=== PATIENT | female | born 1965 | race African-American/Black ===

== ENCOUNTER 2022-08-13 13:54 | Observation (INO) | payer SELFPAY ==
[2022-08-13] VITALS (14 sets, daily range): BP systolic 116–177; BP diastolic 69–98
[~2022-08-13] VITALS: Ht 160 cm; Wt 73.0 kg
--- NOTE | 2022-08-13 13:54 | NUR ---
PT ARRIVES VIA EMS, TRANSFERRED TO ROOM 9.
[2022-08-13 14:32] LABS: BASO% 0.7 % (0-3); EOS% 4.8 % (0-8); HEMATOCRIT 40.3 % (37.0-47.0); HEMOGLOBIN 13.2 g/dl (12.0-16.0); IMMATURE GRANULOCYTES 0.2 % (0.0-5.0); LYMPH% 33.6 % (15-41); MEAN CELL VOLUME 98.1 fL CALC (80.0-100.0); MEAN CORPUSCULAR HGB 32.1 pG CALC (26.0-32.0); MEAN CORPUSCULAR HGB CONC 32.8 g/dL CAL (32.0-36.0); MONO% 10.7 % (2-13); NEUT# 2.1 thou/uL (2.00-7.15); RED BLOOD COUNT 4.11 mill/uL (4.20-5.60); RED CELL DISTRI WIDTH 12.8 % (11.5-15.5)
--- NOTE | 2022-08-13 14:37 | NUR ---
PT RESTING ON STRETCHER, SON AT BEDSIDE.
[2022-08-13 14:39] LABS: ALBUMIN 4.5 g/dL (3.2-5.0); ALKALINE PHOSPHATASE 70 u/l (38-126); ANION GAP 11 (6-22 (CALC)); BILIRUBIN, TOTAL 0.9 mg/dL (0.02-1.3); BUN 16 mg/dL (7-17); BUN/CREATININE RATIO 20 (12-20 (CALC)); CARBON DIOXIDE 26 mmol/l (22-30); CHLORIDE 107 mmol/l (95-108); CREATININE 0.8 mg/dL (0.5-1.0); GFR FOR AFR.AMER. > 60 ML/MIN (>=60 (CALC)); GFR OTHER RACES > 60 ML/MIN (>=60 (CALC)); POTASSIUM 4.2 mmol/l (3.5-5.1); SGOT/AST 29 u/l (14-36); SODIUM 139 mmol/l (137-146); TOTAL PROTEIN 7.3 g/dL (6.3-8.2)
--- NOTE | 2022-08-13 15:43 | NUR ---
PT DOES NOT KNOW HER HOME MEDICATIONS. STATES SHE TOOK ALL HER MEDICATIONS THIS AM. CALLED [facility] TO VERIFY HOME MED REC. MED REC COMPLETED.
[2022-08-13] MEDS ORDERED: SYMBICORT 80-4.5MCG IN (15:47)
[2022-08-13] MEDS ORDERED: PLENDIL10 MG PO (15:48)
[2022-08-13] MEDS ORDERED: COZAAR100 MG PO (15:49)
--- NOTE | 2022-08-13 16:05 | NUR ---
REPORT ENDORSED TO Tiana MCDONALD RN FOR TRANSFER TO ROOM 274.
--- NOTE | 2022-08-13 16:22 | NUR ---
PT TRANSFERRED UP TO ROOM 274 VIA WHEELCHAIR, ON TELEMETRY, ACCOMPANIED BY Daria SHEPPARD ED TECHRolando
--- NOTE | 2022-08-13 16:30 | NUR ---
ER patient is received. report by [facility] ER Nurse. Alert and oriented patient X3. She does not refer to chest pain at the time of writing this note. He is oriented on admission, nursing plan and the medications he takes at home are verified. Safety and fall precautions in [lace. Call light within in reach.
--- NOTE | 2022-08-13 20:00 | NUR ---
RECEIVED REPORT FROM JEANNE RADER. PT RESTING IN BED, SITTING ON THE RIGHT SIDE OF IT, AWAKE, WATCHING TV. ASSESSMENT COMPLETED. PT IS A&OX3. PT IS ABLE TO COMMUNICATE NEEDS BUT ONLY IN [place]EL[place]IC AND CREOLE. PT DENIES ANY PAIN OR DISCOMFORT AT THIS TIME. ON ROOM AIR, BREATHING EVEN AND UNLABORED. IV IS PATENT AND FLUSHES WELL. ON TELEMETRY, MONITORED BY ED. EDUCATED PT ON HOW TO USE THE BED AND HELPED HER FIND A ICELANDIC CHANNEL ON TV. CALL LIGHT AND BEDSIDE TABLE WITHIN REACH, SAFETY PRECAUTIONS IN PLACE.
--- NOTE | 2022-08-14 | NUR ---
PT RESTING IN BED IN LOW SEMI-MCC[place]LLAND'S POSIITON, EYES CLOSED. BREATHING EVEN AND UNLABORED. TELEMETRY IN PLACE. NO SIGNS OF PAIN OR DISTRESS NOTED AT THIS TIME. CALL LIGHT AND BEDSIDE TABLE WITHIN REACH. SAFETY PRECAUTIONS IN PLACE.
--- NOTE | 2022-08-14 04:00 | NUR ---
PT RESTING IN BED IN LOW SEMI-MCCLELLAND'S POSIITON, EYES CLOSED. ON ROOM AIR, BREATHING EVEN AND UNLABORED. IV IS PATENT AND FLUSHES WELL. TELEMETRY IN PLACE, MONITORED BY ED. NO SIGNS OF PAIN OR DISTRESS NOTED AT THIS TIME. CALL LIGHT AND BEDSIDE TABLE WITHIN REACH, SAFETY PRECAUTIONS IN PLACE.
[2022-08-14 04:14] VITALS: BP 133/85
[2022-08-14 06:17] LABS: CHOLESTEROL HDL RATIO 2.9 (<4.4 (CALC)); MAGNESIUM 2.1 mg/dL (1.6-2.3)
[2022-08-14 06:45] VITALS: BP 144/86
--- NOTE | 2022-08-14 09:58 | NUR ---
PT RECEIVED IN BED, A/OX3 CALM AND COOPERATIVE. VITALS NOTED. DENIES PAIN SOB OR DISCOMFORT.SATING AT 98% ON RA. LEFT AC 18G PATENT, SECURED AND SALINE LOCKED. PERIPHERAL PULSES PALPABLE. CALL LIGHT WITHIN REACH, BED SECURED AND LOCKED. WILL CONTINUE TO MONITOR.
[2022-08-14 10:43] LABS: URINE BILIRUBIN - DIPSTICK NEGATIVE (NEGATIVE); URINE BLOOD DIPSTICK NEGATIVE (NEGATIVE); URINE COLOR YELLOW; URINE GLUCOSE - DIPSTICK NEGATIVE (NEGATIVE); URINE KETONE NEGATIVE (NEGATIVE); URINE LEUK ESTERASE TRACE (NEGATIVE); URINE PH 6.5 (4.5-8.0); URINE PROTEIN - DIPSTICK NEGATIVE (NEG-TRACE); URINE SPECIFIC GRAVITY 1.015; URINE UROBILINOGEN - DIPSTICK 0.2 E.U./dL (0.2)
[2022-08-14 10:50] LABS: URINE NITRITE - DIPSTICK NEGATIVE (Negative)
[2022-08-14 10:57] VITALS: BP 134/82
--- NOTE | 2022-08-14 14:24 | NUR ---
RECEIVED REPORT FROM JOSSIE RN - PT OBSERVED SITTING UP IN BED - PT [place] SPKG ONLY - MY STUDENT SPEAKS [place] AND WAS ABLE TO COMMUNICATE WITH PATIENT AND CONFIRM SHE HAS NO QUESTIONS AND IS NOT IN PAIN - PT ALSO HAD A DC ORDER SO I REVIEWED DC INSTRUCTIONS WITH PT AND STUDENT TRANSLATED - PT HAD NO QUESTIONS OR CONCERNS - PIV REMOVED AND COBAN AND GAUZE APPLIED - PT LEFT IN STABLE CONDITION VIA WHEELCHAIR WITH ALL PERSONAL BELONGINGS WITH NO HOME MEDS TO BE PICKED UP
== END 2022-08-14 14:24 | disposition home or self-care (01) | DRG 313 ==
LOC: ED 13:54 → ED-I 15:00 → ED 15:30 → MS2 15:31
PROVIDERS: Nurse Practitioner; ADMIT Internal Medicine; ATTEND Internal Medicine
DX: R07.9 Chest pain, unspecified (principal); F41.9 Anxiety disorder, unspecified; I10 Essential (primary) hypertension; J45.909 Unspecified asthma, uncomplicated; Z73.3 Stress, not elsewhere classified
CPT/HCPCS: G0378; J1650